=== PATIENT | male | born 1975 | race Caucasian/White ===

== ENCOUNTER → 2023-08-23 07:55 | Outpatient (BNVA) | payer BC, OTHER, SELFPAY | PROVIDERS: PCP Electrodiagnostic Medicine; Visit Provider Student in an Organized Health Care Education/Training Program | DX: M67.442 Ganglion, left hand (principal); R22.32 Localized swelling, mass and lump, left upper limb | CPT/HCPCS: 73130 ==

== ENCOUNTER 2024-02-15 06:46 | Day surgery (SDC) | payer OTHER, SELFPAY ==
[2024-02-15] VITALS (7 sets, daily range): BP systolic 103–135; BP diastolic 51–76; PULSE 60–80; RESP 13–18; TEMP 36.1–36.6; O2SAT 96–99; BMI 38.9
--- NOTE | 2024-02-15 07:12 | W.PM.OPSFHP ---
Same Day Surgery H&P Indication for Procedure/HPI DATE OF PROCEDURE: February 15, 2024 CHIEF COMPLAINT/INDICATIONFOR SURGICAL PROCEDURE: Left index finger volar mass PREOP DIAGNOSIS: Left index finger volar mass PLANNED PROCEDURE: Operation Date: 02/15/24 08:30 Proposed Procedures p index finger mass/cyst excision(Left) - Alfredo Davis DO Medications/Allergies* Home Medications Medication Instructions Recorded Confirmed Type lisinopril 20 mg tablet 20 mg PO DAILY 08/23/23 02/14/24 History Allergies/Adverse Reactions Allergy/AdvReac Type Severity Reaction Status Date / Time No Known Allergies Allergy Verified 02/14/24 10:56 Pertinent History/Comorbid Conditions* Social History Smoking and tobacco/nicotine status: current some day tobacco/nicotine user Pertinent Exam Findings alert, oriented x 3, operative site marked and procedure specific exam findings Please refer to detailed orthopedic examination on 12/28 listed below: Examination left hand: Examination left hand demonstrates left index finger has a large palpable mobile cyst/mass 3 cm x 2 cm over the volar aspect of PIP joint more on the ulnar side of the digit. Patient is able to make a fist, there is no tenderness to palpation on the mass or cyst negative Tinel's. Sensation intact light touch distally. Fingertips warm well-perfused brisk capillary refill less than 2 seconds. Recommendations Surgery/Procedure today Other Plans: Plan to proceed to the OR today for left index finger mass/cyst excision. Patient understands the ins and outs procedure the risk benefits complication alternatives surgery and through shared decision-making elects proceed with surgical invention. All questions answered at this time. Coding Level of Care Code Acute Code for g Fwamber
[2024-02-15] MEDS: sodium chloride 0.9% 1,000 ML 30 ML IV (07:20)
[2024-02-15] MEDS: ketorolac 30 mg/mL INJ IVP (07:22)
[2024-02-15] MEDS: acetaminophen 1,000 MG/100 ML PIGGYBACK 400 MG IV (07:22)
[2024-02-15] MEDS: scopolamine 1.5 Patch 1 PATCH TRANSDERMA (07:24)
--- NOTE | 2024-02-15 07:34 | P.ANESASSM_ITS ---
Pre-Anesthetic Assessment Height/Weight: Height 6 ft 4 in Weight 320 lb Temp Pulse Resp BP Pulse Ox O2 Del Method 97.7 F 80 18 135/76 99 Room Air 02/15/24 07:00 02/15/24 07:00 02/15/24 07:00 02/15/24 07:24 02/15/24 07:00 02/15/24 07:00 Preop Diagnosis: Left index finger volar mass Operation Date: 02/15/24 08:30 Proposed Procedures p index finger mass/cyst excision(Left) - Alfredo Fountain, DO Was Beta Bossman taken within 24 hours: N/A Was Clonidine taken within 24 hours: N/A Last intake: Intake Last Liquid Date 02/14/24 Last Liquid Time 18:30 Last Solid Date 02/14/24 Last Solid Time 18:30 Social No alcohol and No tobacco Exam alert, oriented x 3, clear to auscultation bilaterally and regular rate & rhythm Airway Submandibular: within normal limits Cervical ROM: within normal limits Mallampati: Class II Dentition: full Anesthetic Plan ASA status: 2 Anesthesia: MAC Other: No prior issues with anesthesia NPO since yesterday History of hypertension on lisinopril. Preop BP 135/76 Denies any pulmonary issues METs greater than 4 Plan for MAC anesthetic with local via surgeon Medications/Allergies Home Medications Medication Instructions Recorded Confirmed Last Taken Type lisinopril 20 mg tablet 20 mg PO DAILY 08/23/23 02/14/24 02/12/24 History Allergies Allergy/AdvReac Type Severity Reaction Status Date / Time No Known Allergies Allergy Verified 02/14/24 10:56 Current Medications Generic Name Dose Route Start Last Admin Trade Name Ying PRN Reason Stop Dose Admin Sodium Chloride 1,000 mls @ 30 mls/hr 02/15/24 07:00 02/15/24 07:20 Sodium Chloride 0.9% IV 02/16/24 06:59 30 mls/hr .Q24H NILDA Administration PFSH Anesthesia Social History Smoking and tobacco/nicotine status: current some day tobacco/nicotine user Data Anesthesia Cardiac Studies: No Data to Display
[2024-02-15] MEDS: ceFAZolin 3,000 MG in sodium chloride 0.9% (plus) 100 ML 200 MG IV (07:53)
[2024-02-15] MEDS: ROPivacaine 0.5% SDV 30 mL 150 MG INJECTION (08:00)
[2024-02-15] MEDS: lidocaine 1% 10 ML INJ IM (08:00)
--- NOTE | 2024-02-15 09:07 | W.PM.BPON ---
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 Underwent procedure and excision of splint without issues or complications. 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
--- NOTE | 2024-02-15 09:10 | P.OP_ITS ---
Operative Report Date of procedure: February 15, 2024 Surgeon: Alfredo Davis DO Procedure: Preoperative diagnosis: Left?volar?wrist ganglion?cyst Postoperative diagnosis: Same Procedure Left?index finger volar?mass?excision (3 cm x 2 cm x 2.5 cm) Specimens removed/disposition: Left?volar?index finger mass excised and sent for pathology Surgeon: Alfredo Davis DO Estimated blood loss: 5 mL Tourniquet time 31 minutes IV fluids: See anesthesia record Complications: None Findings: See operative report narrative Condition: stable Disposition: same day Brief History: Patient's been worked up in the outpatient setting and findings consistent with preoperative diagnosis.? Patient has a Left?volar?index finger mass/cyst.? Patient has attempted conservative treatment of observation and this has become a nuisance and he like to have this removed.? ?We talked about treatment options as far as nonoperative and operative intervention.? At this point time patient like a more permanent solution and as result through shared decision making we agreed to proceed with a Left?volar?index finger mass/cyst ?excision.? Patient understands risk benefits complication alternatives surgical nonsurgical treatment options.? Understanding risk of surgery patient agrees to proceed.? All questions answered.? Consent obtained in the preoperative holding area.. Procedure: Patient seen evaluate in the preoperative holding area.? Consent was signed and reviewed with patient.? All questions were answered at that time.? Correct extremity was then marked.? Once seen evaluated by anesthesia patient was then brought back to the operative suite.? Patient was then placed in supine position all bony prominences well-padded patient was properly secured to the bed.? An armboard was then applied for the Left upper extremity.? A nonsterile tourniquet was applied to the Left upper extremity arm.? Patient then underwent anesthesia per the anesthesia department.? Once appropriately anesthetized the Left upper extremity was then prepped and draped in standard orthopedic fashion.? Final timeout performed.? Patient received appropriate preoperative antibiotics. Under sterile aseptic technique I began with local anesthetic for my preplanned surgical site performing a digital block to the left index finger. then I utilized an Esmarch tourniquet to exsanguinate the Left upper extremity to 250 mmHg Patient had a large palpable mass on the ulnar side of the left index finger over the PIP joint. I utilized a standard Lukasz incision starting at the MP joint traversing to the radial side of the digit at the PIP joint and then back on the ulnar side at the DIP joint this created a full-thickness flap. I utilized sharp scalpel incision through skin. I then switched to Littler dissection scissors and spread longitudinally in plane and identified the mass. This had appearance of a giant cell tumor flexor tendon sheath. At this point in time I identified this on the radial side and then subsequently mobilized and elevated this off of the tendon sheath keeping the davis system intact tracked this over on the undersurface ulnarly. And then subsequently identified my neurovascular bundles proximally once identified these I tracked this and this was actually resting on top of the mass and being stretched out significantly. I utilized my transport assistant to protect the neurovascular bundle and slow meticulous dissection released the adhesions of the neurovascular bundle off of the top of the mass and mobilized these with a rag nail to the ulnar aspect of the digit these were then protected throughout the case and then I utilized dissection scissors as well as a Bullitt blade to mobilize all soft tissue and maintained exact hemostasis with bipolar electrocautery circumferentially dissecting this out to the stalk which was right at the PIP level of the flexor tendon sheath and communicated right to the flexor tendon sheath. This was then transected at the base with bipolar electrocautery and I cauterized the mass base to prevent from recurrence. This was then removed to its entirety and was measured to being 3 cm x 2 cm x 2.5 cm. The neurovascular bundles were protected throughout this case and kept intact I then subsequently thoroughly irrigated the wound bed tourniquet deflated hemostasis was satisfactory bipolar electrocautery and then closed this with standard interrupted nylon suture. Once again cyst was sent for pathology. Once close this was then dressed with Xeroform 4 x 4's Curlex Salome wrap Estrada wrap. Patient was then awakened from anesthesia and taken back in stable condition. Disposition: Patient taken back in stable condition recovering well.? Patient will receive appropriate discharge instructions as well as pain medication postoperatively.? Patient placed bulky soft dressing.? We will follow-up with in the orthopedic office in 2 weeks.? Patient understands of any questions or concerns and contact the office.
--- NOTE | 2024-02-15 10:27 | ANE.PACU2 ---
Inpatient post-anesthesia follow up: Airway intact: Yes Vital signs: Temperature 97.8 F Pulse Rate 60 Respiratory Rate 16 Blood Pressure 117/51 Pulse Oximetry 99 Oxygen Delivery Me thod Room Air Oxygen Flow Rate 4 Fraction of Inspir ed Oxygen Hydration adequate: Yes Nausea and vomiting: No Pain level: 1 Mental status: Baseline
--- NOTE | 2024-02-15 10:54 | PC.NURSE ---
1020 discontinued iv cathlon intact no signs of infection.
== END 2024-02-15 10:27 | disposition home or self-care (01) ==
PROVIDERS: PCP Electrodiagnostic Medicine; Visit Provider Student in an Organized Health Care Education/Training Program
PROC: (CPT 25111; principal; 2024-02-15 08:20)
DX: M67.432 Ganglion, left wrist (principal); F17.200 Nicotine dependence, unspecified, uncomplicated
CPT/HCPCS: 25111; 88305; 88307; 88311; J0131; J0690; J1885; J2250; J2704; J2795; J3010; J7030

== ENCOUNTER 2024-03-30 06:00 | Outpatient (RCR) | payer OTHER, SELFPAY | END 2024-04-06 23:59 | disposition home or self-care (01) | LOC: SOT 06:00 | PROVIDERS: Visit Provider Physician Assistant | DX: R22.32 Localized swelling, mass and lump, left upper limb (principal) | CPT/HCPCS: 97022; 97110; 97140; 97165; 97530 ==

== ENCOUNTER 2024-04-07 06:30 | Outpatient (RCR) | payer OTHER, SELFPAY | END 2024-05-04 23:59 | disposition home or self-care (01) | LOC: SOT 06:30 | PROVIDERS: Visit Provider Physician Assistant | DX: Z48.817 Encounter for surgical aftercare following surgery on the skin and subcutaneous tissue (principal); R22.32 Localized swelling, mass and lump, left upper limb | CPT/HCPCS: 97022; 97110; 97140 ==

== ENCOUNTER → 2024-11-07 09:56 | Outpatient (BNVA) | payer OTHER, SELFPAY | PROVIDERS: Visit Provider Physician Assistant | DX: M77.11 Lateral epicondylitis, right elbow (principal); M77.12 Lateral epicondylitis, left elbow | CPT/HCPCS: 73080 ==